=== PATIENT | female | born 1935 | race Caucasian/White ===

== ENCOUNTER 2017-12-28 09:08 | Emergency (ER) | payer MEDICARE, OTHER ==
[~2017-12-28] VITALS: Ht 167.6 cm; Wt 79.4 kg
[~2017-12-28 09:08] MED LIST: AMLO5 PO; ANAS1; BUDESONIDE PO; Bactrim Ds Tab1 EACH PO; CALCAVITD PO; CALGLU500; CELE100 PO; CELE200 PO; CETI10 PO; CHOL10002 PO; CIPR500 PO; CLIN300 PO; CONJUGATED ESTROGENS 0.45 MG; CYCL10; Colace100 MG PO; ENOX40I SC; ERGO400 PO; ESOM20; ESOM20 PO; ESTRTP; FOLI400 PO; GLUCHON; HYDACE5325; HYDACE5325 PO; LACTASE; LEVFLO500 PO; LEVOTHYROXINE 112 MCG PO; LEVSOD100; LEVSOD100 PO; LEVSOD112 PO; LISI20 PO; LISI5; MAGGLU250; MESA400ER; MESA400ER PO; METO5A; MINERALS; NITR100 PO; OMEG1CAP30 PO; ONDA4 PO; OXECTA5 MG PO; OXYACE5T PO; PANT20; PHENA200 PO; POLY500; POLY500 PO; POTASSIUM; POTCHL10ER PO; PRED5 PO; QUIN10; RXHYD5325 PO; RXOXYACE PO; RXPHEN200 PO; SULTRISS; THIA100 PO; VITAMENS; [UNRECOGNIZED DRUG - OTHER] PO
== END 2017-12-28 11:02 | disposition home or self-care (01) ==
LOC: ER 09:08
DX: R51 Headache (principal); Z88.1 Allergy status to other antibiotic agents; Z88.0 Allergy status to penicillin; Z79.899 Other long term (current) drug therapy
CPT/HCPCS: 70450; 99284

== ENCOUNTER → 2018-02-07 | Outpatient (CLI) | payer MEDICARE, OTHER | END | disposition home or self-care (01) | LOC: LAB 11:05 → LAB SHORT 11:05 | DX: L03.116 Cellulitis of left lower limb (principal) | CPT/HCPCS: 87070; 87205 ==

== ENCOUNTER 2018-06-14 18:27 | Emergency (ER) | payer MEDICARE, OTHER ==
[~2018-06-14] VITALS: Ht 167.6 cm; Wt 82.1 kg
== END 2018-06-14 19:57 | disposition home or self-care (01) ==
LOC: ER 18:27
DX: S01.01XA Laceration without foreign body of scalp, initial encounter (principal); Z88.1 Allergy status to other antibiotic agents; Z88.0 Allergy status to penicillin; Z79.899 Other long term (current) drug therapy; Z87.891 Personal history of nicotine dependence; W18.30XA Fall on same level, unspecified, initial encounter
CPT/HCPCS: 12001; 70450; 99283-25

== ENCOUNTER 2018-11-08 11:15 | Day surgery (SDC) | payer MEDICARE, OTHER ==
[~2018-11-08] VITALS: Ht 167.6 cm; Wt 86.7 kg
[~2018-11-08 11:15] MED LIST changes: +BUDESONIDE EC3 MG PO; +CALCIUM 500 +1 EAC2 PO; +FISH OIL 1,0001 EAC1 PO; +MAGNESIUM250 MG PO; +Synthroid112 MCG PO
[2018-11-08] MEDS ORDERED: FURO20 (12:22)
--- NOTE | 2018-11-08 12:28 | NUR ---
11/08/18 1228 MichelleMyranda burroughs ATTEMPTED IN LT AC AND LT WRIST, WOULD NOT THREAD.
--- NOTE | 2018-11-08 15:19 | NUR ---
11/08/18 1519 Rosalie Carranza LATE ENTRY--UPON ENTERING STEPDOWN, PATIENT C/O ABD CRAMPING THAT SHE RATED 4/10. SHE WAS ABLE TO TURN OVER IN BED, SIT UP AND CONVERSE WITHOUT ANY APPEARANCE OF BEING IN PAIN. I ASKED 2-3 DIFFERENT TIMES TO SEE IF PAIN WAS IMPROVING AND SHE ANSWERED NO EACH TIME BUT SAID IT WASN'T GETTING WORSE EITHER. PATIENT WAS VERY ANIMATED AND CONVERSING AND NEVER APPEARED TO BE IN ANY PAIN, WALKED PATIENT TO THE CAR AND SHE HAD NO PROBLEMS AND WAS DISCHARGED IN STABLE CONDITION
== END 2018-11-08 14:35 | disposition home or self-care (01) ==
LOC: ORSCSDS 11:15
PROVIDERS: Internal Medicine Gastroenterology
PROC: 0D7B8ZZ Dilation of Ileum, Via Natural or Artificial Opening Endoscopic (ICD-10-PCS; principal; 2018-11-08 13:00)
PROC: 0DBB8ZX Excision of Ileum, Via Natural or Artificial Opening Endoscopic, Diagnostic (ICD-10-PCS; principal; 2018-11-08 13:00)
DX: K50.90 Crohn's disease, unspecified, without complications (principal); R19.4 Change in bowel habit; D12.0 Benign neoplasm of cecum; K57.30 Diverticulosis of large intestine without perforation or abscess without bleeding; K64.8 Other hemorrhoids; I10 Essential (primary) hypertension; E03.9 Hypothyroidism, unspecified; Z87.891 Personal history of nicotine dependence
CPT/HCPCS: 88305; C1726; J2405; J7120

== ENCOUNTER 2019-01-12 07:56 | Day surgery (SDC) | payer MEDICARE, OTHER ==
[~2019-01-12] VITALS: Ht 167.6 cm; Wt 86.4 kg
[~2019-01-12 07:56] MED LIST changes: +FURO20
== END 2019-01-12 10:00 | disposition home or self-care (01) ==
LOC: ORSCSDS 07:56
PROVIDERS: Internal Medicine Gastroenterology
PROC: 0D758ZZ Dilation of Esophagus, Via Natural or Artificial Opening Endoscopic (ICD-10-PCS; principal; 2019-01-12 09:15)
DX: R13.10 Dysphagia, unspecified (principal); K22.2 Esophageal obstruction; K44.9 Diaphragmatic hernia without obstruction or gangrene; E03.9 Hypothyroidism, unspecified; I10 Essential (primary) hypertension; Z87.891 Personal history of nicotine dependence; E66.9 Obesity, unspecified; Z68.31 Body mass index [BMI] 31.0-31.9, adult; K50.90 Crohn's disease, unspecified, without complications; Z79.899 Other long term (current) drug therapy
CPT/HCPCS: J2704; J7120

== ENCOUNTER → 2019-01-15 | Outpatient (CLI) | payer MEDICARE, OTHER | END | disposition home or self-care (01) | LOC: LAB 16:41 → LAB SHORT 16:41 → LAB FUT 01-10 15:10 | DX: K50.112 Crohn's disease of large intestine with intestinal obstruction (principal) | CPT/HCPCS: 83993 ==

== ENCOUNTER 2019-03-09 14:19 | Emergency (ER) | payer OTHER, MEDICARE ==
[~2019-03-09] VITALS: Ht 165.1 cm; Wt 83.5 kg
[2019-03-09 14:51] LABS: BASOPHILS ABSOLUTE AUTO 0.06 K/mm3 (0.00-0.23); BASOPHILS PERCENT AUTO 1 % (0-2); EOSINOPHILS ABSOLUTE AUTO 0.07 K/mm3 (0.00-0.68); EOSINOPHILS PERCENT AUTO 1 % (0-6); Hematocrit 43.5 % (33.0-51.0); Hemoglobin 13.4 g/dL (11.5-16.0); IMMATURE GRAN ABSOLUTE AUTO 0.31 K/mm3 (0.00-0.10); IMMATURE GRAN PERCENT AUTO 3 % (0-1); LYMPHOCYTES ABSOLUTE AUTO 2.01 K/mm3 (0.84-5.20); LYMPHOCYTES PERCENT AUTO 17 % (21-46); MONOCYTES ABSOLUTE AUTO 0.77 K/mm3 (0.16-1.47); MONOCYTES PERCENT AUTO 6 % (4-13); Mean Corpuscular HGB 28.6 pg (26.0-34.0); Mean Corpuscular HGB Conc 30.8 g/dL (31.5-36.5); Mean Corpuscular Volume 93 fL (80-100); Mean Platelet Volume 10.5 fL (9.1-12.4); NEUTROPHILS ABSOLUTE AUTO 8.94 K/mm3 (1.96-9.15); NEUTROPHILS PERCENT AUTO 74 % (41-73); Platelet Count 242 K/mm3 (150-400); RDW Coefficient Variation 14.2 % (11.7-14.2); RDW Standard Deviation 47.8 fL (35.1-46.3); Red Blood Cell Count 4.68 M/mm3 (3.80-5.20); White Blood Cell Count 12.16 K/mm3 (4.00-11.30)
[2019-03-09 15:12] LABS: Alanine Aminotransfer (ALT/SGP 50 U/L (12-78); Albumin, Blood 3.4 g/dL (3.4-5.0); Alk Phos 84 U/L (50-136); Anion Gap 8 mmol/L (6-16); Aspartate Aminotrans (AST/SGOT 44 U/L (12-37); Bilirubin, Total 0.3 mg/dL (0.1-1.0); Blood Urea Nitrogen 15 mg/dL (8-24); Bun/Creatinine Ratio 13.6 (12.0-20.0); CO2, Blood 25 mmol/L (21-32); Calcium, Blood 9.5 mg/dL (8.5-10.1); Chloride, Blood 107 mmol/L (98-108); Ethanol (Alcohol), Blood, Med <3 mg/dL; Globulin, Blood 3.5 g/dL (2.2-4.0); Glomerular Filtration Rate 50 (60-); Glucose, Blood 172 mg/dL (70-99); Potassium, Blood 3.9 mmol/L (3.5-5.5); Sodium, Blood 140 mmol/L (136-145); Total Protein, Blood 6.9 g/dL (6.4-8.2)
[2019-03-09] MEDS ORDERED: EUTHYROX112 MCG PO (17:19)
[2019-03-09] MEDS ORDERED: POTCHL10ER PO (17:20)
[2019-07-14] MEDS ORDERED: ESOM20 (13:02)
== END 2019-03-09 18:48 | disposition short-term general hospital (02) ==
LOC: ER 14:19
PROVIDERS: Emergency Medicine
DX: S22.31XA Fracture of one rib, right side, initial encounter for closed fracture (principal); S22.20XA Unspecified fracture of sternum, initial encounter for closed fracture; M48.54XA Collapsed vertebra, not elsewhere classified, thoracic region, initial encounter for fracture; S61.501A Unspecified open wound of right wrist, initial encounter; S51.811A Laceration without foreign body of right forearm, initial encounter; K50.90 Crohn's disease, unspecified, without complications; V49.9XXA Car occupant (driver) (passenger) injured in unspecified traffic accident, initial encounter; Z88.1 Allergy status to other antibiotic agents; Z88.0 Allergy status to penicillin; Z88.8 Allergy status to other drugs, medicaments and biological substances; Z79.899 Other long term (current) drug therapy
CPT/HCPCS: 12002; 51702; 71260; 72125; 73090; 74177; 80053; 85025; 86850; 86900; 86901; 93005; 93010; 96374-59; 96375-59; 96376-59; 99285-25; G0480; J2405; J3010; J7030; Q9967

== ENCOUNTER 2019-04-02 18:32 | Emergency (ER) | payer OTHER, MEDICARE ==
[~2019-04-02] VITALS: Ht 165.1 cm; Wt 77.6 kg
[~2019-04-02 18:32] MED LIST changes: +EUTHYROX112 MCG PO
[2019-07-14] MEDS ORDERED: ESOM20 (13:02)
== END 2019-04-02 21:21 | disposition home or self-care (01) ==
LOC: ER 18:32
DX: J06.9 Acute upper respiratory infection, unspecified (principal); Z88.1 Allergy status to other antibiotic agents; Z88.0 Allergy status to penicillin; Z79.899 Other long term (current) drug therapy
CPT/HCPCS: 99283

== ENCOUNTER 2019-04-06 03:28 | Emergency (ER) | payer MEDICARE, OTHER ==
[~2019-04-06] VITALS: Ht 165.1 cm; Wt 77.1 kg
[2019-04-06 04:27] LABS: BASOPHILS ABSOLUTE AUTO 0.03 K/mm3 (0.00-0.23); BASOPHILS PERCENT AUTO 1 % (0-2); EOSINOPHILS PERCENT AUTO 2 % (0-6); Hematocrit 44.5 % (33.0-51.0); Hemoglobin 13.6 g/dL (11.5-16.0); IMMATURE GRAN ABSOLUTE AUTO 0.04 K/mm3 (0.00-0.10); IMMATURE GRAN PERCENT AUTO 1 % (0-1); LYMPHOCYTES ABSOLUTE AUTO 1.77 K/mm3 (0.84-5.20); LYMPHOCYTES PERCENT AUTO 32 % (21-46); MONOCYTES ABSOLUTE AUTO 0.53 K/mm3 (0.16-1.47); MONOCYTES PERCENT AUTO 10 % (4-13); Mean Corpuscular HGB 28.9 pg (26.0-34.0); Mean Corpuscular HGB Conc 30.6 g/dL (31.5-36.5); Mean Corpuscular Volume 95 fL (80-100); NEUTROPHILS ABSOLUTE AUTO 3.01 K/mm3 (1.96-9.15); NEUTROPHILS PERCENT AUTO 55 % (41-73); Platelet Count 246 K/mm3 (150-400); RDW Coefficient Variation 14.4 % (11.7-14.2); RDW Standard Deviation 50.4 fL (35.1-46.3); White Blood Cell Count 5.48 K/mm3 (4.00-11.30)
[2019-04-06 04:47] LABS: Alanine Aminotransfer (ALT/SGP 19 U/L (12-78); Albumin, Blood 3.2 g/dL (3.4-5.0); Albumin/Globulin Ratio 0.9 (0.8-1.8); Alk Phos 234 U/L (50-136); Anion Gap 8 mmol/L (6-16); Aspartate Aminotrans (AST/SGOT 9 U/L (12-37); Bilirubin, Total 0.3 mg/dL (0.1-1.0); Blood Urea Nitrogen 12 mg/dL (8-24); Bun/Creatinine Ratio 18.3 (12.0-20.0); CO2, Blood 29 mmol/L (21-32); Calcium, Blood 8.8 mg/dL (8.5-10.1); Chloride, Blood 104 mmol/L (98-108); Creatinine, Blood 0.65 mg/dL (0.40-1.00); Globulin, Blood 3.6 g/dL (2.2-4.0); Glomerular Filtration Rate >60 (60-); Glucose, Blood 100 mg/dL (70-99); Potassium, Blood 3.1 mmol/L (3.5-5.5); Sodium, Blood 141 mmol/L (136-145); Total Protein, Blood 6.8 g/dL (6.4-8.2); Troponin I <0.015 ng/mL (0.000-0.040)
[2019-07-14] MEDS ORDERED: ESOM20 (13:02)
== END 2019-04-06 17:18 | disposition home or self-care (01) ==
LOC: ER 03:28
PROVIDERS: Emergency Medicine
DX: J96.90 Respiratory failure, unspecified, unspecified whether with hypoxia or hypercapnia (principal); S22.42XD Multiple fractures of ribs, left side, subsequent encounter for fracture with routine healing; E03.9 Hypothyroidism, unspecified; Z88.1 Allergy status to other antibiotic agents; Z88.0 Allergy status to penicillin; Z79.899 Other long term (current) drug therapy; Z87.891 Personal history of nicotine dependence
CPT/HCPCS: 36415; 71046; 71260; 78582; 80053; 84484; 85025; 85379; 93005; 93010; 94640; 96374-59; 96375-59; 99285-25; A9270; A9540; A9558; J2405; J2930; Q9967

== ENCOUNTER → 2019-04-12 | Outpatient (CLI) | payer MEDICARE, OTHER ==
[2019-04-13 13:12] LABS: Adenovirus F 40/41 Not Detected (NOT DETECT); Astrovirus Not Detected (NOT DETECT); Campylobacter Sp Not Detected (NOT DETECT); Cryptosporidium Not Detected (NOT DETECT); Cyclospora Cayetanensis Not Detected (NOT DETECT); E. Coli O157 Not Detected (NOT DETECT); Entamoeba Histolytica Not Detected (NOT DETECT); Enteroaggregative E. coli-EAEC Not Detected (NOT DETECT); Enteropathogenic E. coli-EPEC Not Detected (NOT DETECT); Enterotoxigenic E. coli-ETEC Not Detected (NOT DETECT); Giardia Lamblia Not Detected (NOT DETECT); Norovirus GI/GII Not Detected (NOT DETECT); Plesiomonas Shigelloides Not Detected (NOT DETECT); Rotavirus A Not Detected (NOT DETECT); Salmonella Sp Not Detected (NOT DETECT); Sapovirus Not Detected (NOT DETECT); Shiga Toxin-prod E. coli-STEC Not Detected (NOT DETECT); Shigella/Enteroin E. coli-EIEC Not Detected (NOT DETECT); Vibrio Cholerae Not Detected (NOT DETECT); Vibrio Sp Not Detected (NOT DETECT); Yersinia Enterocolitica Not Detected (NOT DETECT)
== END | disposition home or self-care (01) ==
LOC: LAB 14:30 → LAB SHORT 14:30 → LAB FUT 04-11 13:30
PROVIDERS: Internal Medicine Hematology & Oncology
DX: R19.7 Diarrhea, unspecified (principal)
CPT/HCPCS: 0097U

== ENCOUNTER 2019-07-27 10:24 | Day surgery (SDC) | payer MEDICARE, OTHER | END 2019-07-27 23:17 | disposition home or self-care (01) | LOC: MIR 10:24 → RAD 10:24 → MIR 11:00 → RAD 23:17 | DX: R05 Cough (principal); R09.89 Other specified symptoms and signs involving the circulatory and respiratory systems; R13.10 Dysphagia, unspecified; K21.9 Gastro-esophageal reflux disease without esophagitis; G62.9 Polyneuropathy, unspecified; I10 Essential (primary) hypertension; E03.9 Hypothyroidism, unspecified; M19.90 Unspecified osteoarthritis, unspecified site; Z79.899 Other long term (current) drug therapy; Z88.0 Allergy status to penicillin; Z88.1 Allergy status to other antibiotic agents | CPT/HCPCS: 74230; 92611 ==

== ENCOUNTER 2019-09-25 10:38 | Emergency (ER) | payer MEDICARE, OTHER ==
[~2019-09-25] VITALS: Ht 167.6 cm; Wt 73.9 kg
[2019-09-25 11:34] LABS: BASOPHILS ABSOLUTE AUTO 0.06 K/mm3 (0.00-0.23); BASOPHILS PERCENT AUTO 0 % (0-2); EOSINOPHILS ABSOLUTE AUTO 0.05 K/mm3 (0.00-0.68); EOSINOPHILS PERCENT AUTO 0 % (0-6); Hematocrit 47.6 % (33.0-51.0); Hemoglobin 15.1 g/dL (11.5-16.0); IMMATURE GRAN ABSOLUTE AUTO 0.08 K/mm3 (0.00-0.10); IMMATURE GRAN PERCENT AUTO 1 % (0-1); LYMPHOCYTES ABSOLUTE AUTO 1.56 K/mm3 (0.84-5.20); LYMPHOCYTES PERCENT AUTO 10 % (21-46); MONOCYTES ABSOLUTE AUTO 1.44 K/mm3 (0.16-1.47); MONOCYTES PERCENT AUTO 9 % (4-13); Mean Corpuscular HGB Conc 31.7 g/dL (31.5-36.5); Mean Corpuscular Volume 92 fL (80-100); Mean Platelet Volume 11.3 fL (9.1-12.4); NEUTROPHILS ABSOLUTE AUTO 12.24 K/mm3 (1.96-9.15); NEUTROPHILS PERCENT AUTO 79 % (41-73); Platelet Count 238 K/mm3 (150-400); RDW Standard Deviation 43.7 fL (35.1-46.3); White Blood Cell Count 15.43 K/mm3 (4.00-11.30)
[2019-09-25] MEDS ORDERED: LOSARTAN POTASS50 MG PO (11:34)
[2019-09-25] MEDS ORDERED: [UNRECOGNIZED DRUG - OTHER] (11:35)
[2019-09-25 11:53] LABS: Albumin, Blood 3.4 g/dL (3.4-5.0); Albumin/Globulin Ratio 0.8 (0.8-1.8); Bilirubin, Total 1.3 mg/dL (0.1-1.0); Bun/Creatinine Ratio 16.4 (12.0-20.0); Calcium, Blood 9.7 mg/dL (8.5-10.1); Creatinine, Blood 0.98 mg/dL (0.40-1.00); Globulin, Blood 4.3 g/dL (2.2-4.0); Potassium, Blood 3.1 mmol/L (3.5-5.5); Total Protein, Blood 7.7 g/dL (6.4-8.2)
[2019-09-25 15:16] LABS: Source, Urine Clean Catch
[2019-09-25 15:24] LABS: Bilirubin, Urine Neg (Neg); Blood, Urine 1+ (Neg); Glucose Qualitative, Urine Neg (Neg); Ketones, Urine Neg (Neg); Leukocyte Esterase, Urine 3+ (Neg); Nitrite, Urine Pos (Neg); Protein, Urine 2+ (Neg); Urobilinogen, Urine NORM (Normal)
[2019-09-25 15:35] LABS: Appearance, Urine Cloudy (Clear); Color, Urine Yellow (P-Yellow)
[2019-09-25 15:36] LABS: White Blood Cells, Urine 50-100 /hpf (0-5)
[2019-09-25 15:37] LABS: Bacteria Many /hpf; Squamous Epithelial Cells Few /hpf (Few)
[2019-09-25] MEDS ORDERED: Bactrim Ds Tab1 EACH PO (15:59)
[2019-09-25] MEDS ORDERED: Flagyl250 MG PO (15:59)
== END 2019-09-25 17:06 | disposition home or self-care (01) ==
LOC: ER 10:38
PROVIDERS: Emergency Medicine
DX: K57.32 Diverticulitis of large intestine without perforation or abscess without bleeding (principal); Z88.1 Allergy status to other antibiotic agents; Z88.0 Allergy status to penicillin; Z79.899 Other long term (current) drug therapy; E03.9 Hypothyroidism, unspecified; Z87.891 Personal history of nicotine dependence
CPT/HCPCS: 36415; 74018; 74176; 80053; 81001; 83690; 85025; 87077; 87086; 87186; 99284-25; A9270-GY

== ENCOUNTER 2020-06-11 06:10 | Day surgery (SDC) | payer MEDICARE, OTHER ==
[~2020-06-11] VITALS: Ht 157.5 cm; Wt 72.9 kg
[~2020-06-11 06:10] MED LIST changes: +ENTYVIO300 MG; -FURO20; +FURO20 PO; +Flagyl250 MG PO; +HIPREX1 G1 PO; +LOSARTAN POTASS50 MG PO; +Nexium40 MG PO; +POTASSIUM CHLO20 MEQ PO; +[UNRECOGNIZED DRUG - OTHER]
--- NOTE | 2020-06-11 07:37 | NUR ---
06/11/20 0737 Jp Juarez A SMALL SCABBED SCRATCH NOTED ON LEFT UPPER WRIST BEFORE PREP.
--- NOTE | 2020-06-11 08:56 | NUR ---
06/11/20 0856 KHALIDA BATES PATIENT VSS, ASSISTED TO RECLINER. IV DC'D. PATIENT REPORTS HAND/WRIST IS NUMB AT THIS TIME. TOO WRAP C/D/I. PATIENT TOLERATING PO INTAKE WITHOUT NAUSEA. TO BEDSIDE. ENGAGED IN DC TEACHING PATIENT IS EAGER TO DC. ALL QUESTIONS ASKED AND ANSWERED. PT DC VIA WC TO VEHICLE.
== END 2020-06-11 08:20 | disposition home or self-care (01) ==
LOC: ORSCSDS 06:10
PROVIDERS: Orthopaedic Surgery
PROC: 01N50ZZ Release Median Nerve, Open Approach (ICD-10-PCS; principal; 2020-06-11 07:30)
DX: G56.02 Carpal tunnel syndrome, left upper limb (principal); I10 Essential (primary) hypertension; Z79.899 Other long term (current) drug therapy
CPT/HCPCS: J2704; J3010; J7120

== ENCOUNTER 2021-10-23 07:37 | Day surgery (SDC) | payer MEDICARE, OTHER ==
[~2021-10-23] VITALS: Ht 157.5 cm; Wt 77.0 kg
== END 2021-10-23 09:57 | disposition home or self-care (01) ==
LOC: ORSCSDS 07:37
PROVIDERS: Internal Medicine Gastroenterology
PROC: 0D758ZZ Dilation of Esophagus, Via Natural or Artificial Opening Endoscopic (ICD-10-PCS; principal; 2021-10-23 09:00)
DX: R13.10 Dysphagia, unspecified (principal); K22.2 Esophageal obstruction; K21.9 Gastro-esophageal reflux disease without esophagitis; I10 Essential (primary) hypertension; E03.9 Hypothyroidism, unspecified; Z85.3 Personal history of malignant neoplasm of breast; Z79.899 Other long term (current) drug therapy; Z87.891 Personal history of nicotine dependence
CPT/HCPCS: C1726; J2704; J7120

== ENCOUNTER → 2022-02-22 | Outpatient (CLI) | payer MEDICARE, OTHER | END | disposition home or self-care (01) | LOC: LAB SHORT 15:58 → EFM RAD 15:58 | DX: N39.0 Urinary tract infection, site not specified (principal) | CPT/HCPCS: 87077; 87086; 87186 ==

== ENCOUNTER → 2022-03-20 | Outpatient (CLI) | payer MEDICARE, OTHER | END | disposition home or self-care (01) | LOC: LAB SHORT 17:22 → LAB 17:22 | DX: S81.812A Laceration without foreign body, left lower leg, initial encounter (principal) | CPT/HCPCS: 87070; 87075; 87205 ==

== ENCOUNTER → 2022-03-27 | Outpatient (CLI) | payer MEDICARE, OTHER ==
[~2022-03-27] MED LIST changes: +CYCL0.05OP; +FUROSEMIDE20 MG PO; +LEVOTHYROXINE PO; +LOSA25; +PANTOPRAZOLE SO40 M2
== END | disposition home or self-care (01) ==
LOC: LAB SHORT 16:43 → LAB 16:43
DX: S81.812D Laceration without foreign body, left lower leg, subsequent encounter (principal)
CPT/HCPCS: 87070; 87075; 87205

== ENCOUNTER 2022-04-12 20:52 | Emergency (ER) | payer MEDICARE, OTHER ==
[~2022-04-12] VITALS: Ht 157.5 cm; Wt 77.1 kg
[~2022-04-12 20:52] MED LIST changes: -CYCL0.05OP; -FUROSEMIDE20 MG PO; -LEVOTHYROXINE PO; -LOSA25; -PANTOPRAZOLE SO40 M2
[2022-04-12] MEDS ORDERED: FUROSEMIDE20 MG PO (22:04)
[2022-04-12] MEDS ORDERED: PANTOPRAZOLE SO40 M2 (22:06)
[2022-04-12] MEDS ORDERED: CYCL0.05OP (22:06)
[2022-04-12] MEDS ORDERED: LOSA25 (22:07)
[2022-04-12] MEDS ORDERED: LEVOTHYROXINE PO (22:08)
== END 2022-04-12 23:10 | disposition home or self-care (01) ==
LOC: ER 20:52
DX: U07.1 COVID-19 (principal); Z88.0 Allergy status to penicillin; Z88.2 Allergy status to sulfonamides; Z88.1 Allergy status to other antibiotic agents; Z96.652 Presence of left artificial knee joint; Z87.891 Personal history of nicotine dependence
CPT/HCPCS: 99283-25; M0222

== ENCOUNTER 2023-07-07 13:05 | Day surgery (SDC) | payer MEDICARE, OTHER ==
[~2023-07-07] VITALS: Ht 157.5 cm; Wt 79.5 kg
[~2023-07-07 13:05] MED LIST changes: +CYCL0.05OP; +FUROSEMIDE20 MG PO; +LEVOTHYROXINE PO; +LOSA25; +PANTOPRAZOLE SO40 M2
[2023-07-07] MEDS ORDERED: ENTYVIO300 M1 (13:34)
[2023-07-07] MEDS ORDERED: CYCL0.05OP (13:34)
[2023-07-07] MEDS ORDERED: FLUP1 (13:34)
[2023-07-07] MEDS ORDERED: MAGCIT300 (13:35)
[2023-07-07] MEDS ORDERED: BENADRYL25 MG (13:35)
[2023-07-07] MEDS ORDERED: POTA8 (13:35)
[2023-07-07 17:00] VITALS: BP 164/68
--- NOTE | 2023-07-07 17:12 | NUR ---
07/07/23 1712 JUAN MIGUEL STERLING ASSISTANCE IN PT DC.
== END 2023-07-07 17:08 | disposition home or self-care (01) ==
LOC: ORSCSDS 13:05
PROVIDERS: Internal Medicine Gastroenterology
PROC: 0DBE8ZX Excision of Large Intestine, Via Natural or Artificial Opening Endoscopic, Diagnostic (ICD-10-PCS; principal; 2023-07-07 14:30)
PROC: 0DBB8ZX Excision of Ileum, Via Natural or Artificial Opening Endoscopic, Diagnostic (ICD-10-PCS; principal; 2023-07-07 14:30)
DX: K50.90 Crohn's disease, unspecified, without complications (principal); R19.7 Diarrhea, unspecified; Z86.010 Personal history of colon polyps; I10 Essential (primary) hypertension; K21.9 Gastro-esophageal reflux disease without esophagitis; E03.9 Hypothyroidism, unspecified; Z85.3 Personal history of malignant neoplasm of breast; Z87.891 Personal history of nicotine dependence; Z79.899 Other long term (current) drug therapy
CPT/HCPCS: 88305; J0461; J2001; J2405; J2704; J7120; Q9968

== ENCOUNTER 2023-07-15 07:57 | Day surgery (SDC) | payer MEDICARE, OTHER ==
[~2023-07-15] VITALS: Ht 157.5 cm; Wt 80.2 kg
[~2023-07-15 07:57] MED LIST changes: +BENADRYL25 MG; +ENTYVIO300 M1; +FLUP1; +MAGCIT300; +POTA8
[2023-07-15] MEDS ORDERED: ENTYVIO300 M1 (08:27)
[2023-07-15] MEDS ORDERED: PANT40 (08:28)
[2023-07-15] MEDS ORDERED: Restasis1 EACH (08:28)
[2023-07-15] MEDS ORDERED: PROLIA60 MG/1 ML (08:36)
--- NOTE | 2023-07-15 10:10 | NUR ---
07/15/23 1010 JUAN MIGUEL STERLING 16,YENY 18-20 AND ALBIN 54,56
[2023-07-15 10:50] VITALS: BP 126/73
--- NOTE | 2023-07-15 10:52 | NUR ---
07/15/23 1052 Mana Sparrow IV, DC'Michael WNL, CATH INTACT. PT TOLERATED WELL.
== END 2023-07-15 10:43 | disposition home or self-care (01) ==
LOC: ORSCSDS 07:57
PROVIDERS: Internal Medicine Gastroenterology
PROC: 0D757ZZ Dilation of Esophagus, Via Natural or Artificial Opening (ICD-10-PCS; principal; 2023-07-15 09:30)
PROC: 0D758ZZ Dilation of Esophagus, Via Natural or Artificial Opening Endoscopic (ICD-10-PCS; principal; 2023-07-15 09:30)
DX: R13.10 Dysphagia, unspecified (principal); K21.9 Gastro-esophageal reflux disease without esophagitis; K22.2 Esophageal obstruction; K44.9 Diaphragmatic hernia without obstruction or gangrene; Z86.16 Personal history of COVID-19; Z79.899 Other long term (current) drug therapy; K50.90 Crohn's disease, unspecified, without complications; Z85.3 Personal history of malignant neoplasm of breast; F17.210 Nicotine dependence, cigarettes, uncomplicated
CPT/HCPCS: C1726; J2704; J7120

== ENCOUNTER 2023-08-26 00:58 | Day surgery (SDC) | payer MEDICARE, OTHER ==
[~2023-08-26 00:58] MED LIST changes: +ENTYVIO300 M1 IV; -LEVOTHYROXINE PO; -LOSA25; +LOSA50 PO; -MAGCIT300; +MAGNESIUM250 M1 PO; +PANT40 PO; +PROLIA60 MG/1 ML; +Restasis1 EACH BOTHEYES
[2023-08-26 15:01] VITALS: BP 140/69
[2023-08-26] MEDS ORDERED: ARNUITY ELLIPT50 MCG INH (15:01)
[2023-08-26] MEDS ORDERED: Vitamin D1000 UNI1 PO (15:06)
[2023-08-26] MEDS ORDERED: CALCIUM 600 +1 EA11 PO (15:07)
== END 2023-08-26 16:07 | disposition home or self-care (01) ==
LOC: ATC 00:58
DX: K50.012 Crohn's disease of small intestine with intestinal obstruction (principal); K21.9 Gastro-esophageal reflux disease without esophagitis; Z86.16 Personal history of COVID-19; F17.210 Nicotine dependence, cigarettes, uncomplicated; Z79.890 Hormone replacement therapy; Z79.899 Other long term (current) drug therapy
CPT/HCPCS: 96365; J3380; J7050

== ENCOUNTER 2023-10-13 02:45 | Day surgery (SDC) | payer MEDICARE, OTHER ==
[~2023-10-13 02:45] MED LIST changes: +ARNUITY ELLIPT50 MCG INH; +CALCIUM 600 +1 EA11 PO; +Vitamin D1000 UNI1 PO
[2023-10-13 10:00] VITALS: BP 138/90
== END 2023-10-13 11:00 | disposition home or self-care (01) ==
LOC: ATC 02:45
DX: K50.012 Crohn's disease of small intestine with intestinal obstruction (principal); K21.9 Gastro-esophageal reflux disease without esophagitis; K52.9 Noninfective gastroenteritis and colitis, unspecified; F17.210 Nicotine dependence, cigarettes, uncomplicated; Z86.16 Personal history of COVID-19; Z88.0 Allergy status to penicillin; Z88.1 Allergy status to other antibiotic agents; Z79.890 Hormone replacement therapy; Z79.899 Other long term (current) drug therapy
CPT/HCPCS: 96365; J3380; J7050

== ENCOUNTER → 2023-10-21 | Outpatient (CLI) | payer MEDICARE, OTHER ==
[2023-10-21 12:23] LABS: Source, Urine Clean Catch
[2023-10-21 12:28] LABS: Bacteria Not Seen /hpf; Red Blood Cells, Urine 0-2 /hpf (0-2); Squamous Epithelial Cells Few /hpf (Few); White Blood Cells, Urine 0-2 /hpf (0-5)
== END ==
LOC: LAB SHORT 12:18 → LAB 12:18
PROVIDERS: Chiropractor
DX: R30.0 Dysuria (principal)
CPT/HCPCS: 81015

== ENCOUNTER 2024-01-21 10:58 | Day surgery (SDC) | payer MEDICARE, OTHER | END 2024-01-21 23:04 | disposition home or self-care (01) | LOC: ATC 10:58 | DX: K50.012 Crohn's disease of small intestine with intestinal obstruction (principal) ==

== ENCOUNTER → 2024-01-21 | Outpatient (CLI) | payer MEDICARE, OTHER ==
[~2024-01-21] MED LIST changes: +DULO30 PO
[2024-01-21 17:08] LABS: Campylobacter Sp Not Detected (NOT DETECT)
[2024-01-21 17:09] LABS: Adenovirus F 40/41 Not Detected (NOT DETECT); Astrovirus Not Detected (NOT DETECT); Cryptosporidium Not Detected (NOT DETECT); Cyclospora Cayetanensis Not Detected (NOT DETECT); E. Coli O157 Not Detected (NOT DETECT); Entamoeba Histolytica Not Detected (NOT DETECT); Enteroaggregative E. coli-EAEC Not Detected (NOT DETECT); Enteropathogenic E. coli-EPEC Not Detected (NOT DETECT); Enterotoxigenic E. coli-ETEC Not Detected (NOT DETECT); Giardia Lamblia Not Detected (NOT DETECT); Norovirus GI/GII Not Detected (NOT DETECT); Plesiomonas Shigelloides Not Detected (NOT DETECT); Rotavirus A Not Detected (NOT DETECT); Salmonella Sp Not Detected (NOT DETECT); Sapovirus Not Detected (NOT DETECT); Shiga Toxin-prod E. coli-STEC Not Detected (NOT DETECT); Shigella/Enteroin E. coli-EIEC Not Detected (NOT DETECT); Vibrio Cholerae Not Detected (NOT DETECT); Vibrio Sp Not Detected (NOT DETECT); Yersinia Enterocolitica Not Detected (NOT DETECT)
[2024-01-24 15:42] LABS: CALPROTECTIN,FECAL 9 ug/g (<=49)
== END | disposition home or self-care (01) ==
LOC: LAB 09:35 → LAB SHORT 09:35
PROVIDERS: Physician Assistant Medical
DX: K50.012 Crohn's disease of small intestine with intestinal obstruction (principal); R19.7 Diarrhea, unspecified
CPT/HCPCS: 83993; 87507

== ENCOUNTER 2024-01-24 09:50 | Day surgery (SDC) | payer MEDICARE, OTHER ==
[2024-01-24 13:28] VITALS: BP 161/70
== END 2024-01-24 15:02 | disposition home or self-care (01) ==
LOC: ATC 09:50
DX: K50.012 Crohn's disease of small intestine with intestinal obstruction (principal); F17.210 Nicotine dependence, cigarettes, uncomplicated; E03.9 Hypothyroidism, unspecified; Z88.1 Allergy status to other antibiotic agents; Z88.0 Allergy status to penicillin; Z88.2 Allergy status to sulfonamides; Z88.8 Allergy status to other drugs, medicaments and biological substances; Z79.890 Hormone replacement therapy; Z79.899 Other long term (current) drug therapy

== ENCOUNTER 2024-06-15 11:33 | Emergency (ER) | payer OTHER, MEDICARE ==
[~2024-06-15] VITALS: Ht 157.5 cm; Wt 80.3 kg
[2024-06-15 11:40] VITALS: BP 178/86
[2024-06-15] MEDS ORDERED: Morphine Sulfate 4 MG/1 ML Injection IV ONE (11:45)
[2024-06-15 12:03] LABS: BASOPHILS ABSOLUTE AUTO 0.03 K/mm3 (0.00-0.23); BASOPHILS PERCENT AUTO 1 % (0-2); EOSINOPHILS ABSOLUTE AUTO 0.06 K/mm3 (0.00-0.68); EOSINOPHILS PERCENT AUTO 1 % (0-6); Hematocrit 45.4 % (33.0-51.0); Hemoglobin 14.5 g/dL (11.5-16.0); IMMATURE GRAN ABSOLUTE AUTO 0.05 K/mm3 (0.00-0.10); IMMATURE GRAN PERCENT AUTO 1 % (0-1); LYMPHOCYTES ABSOLUTE AUTO 0.97 K/mm3 (0.84-5.20); LYMPHOCYTES PERCENT AUTO 15 % (21-46); MONOCYTES ABSOLUTE AUTO 0.63 K/mm3 (0.16-1.47); MONOCYTES PERCENT AUTO 10 % (4-13); Mean Corpuscular HGB 29.5 pg (26.0-34.0); Mean Corpuscular HGB Conc 31.9 g/dL (31.5-36.5); Mean Corpuscular Volume 92 fL (80-100); Mean Platelet Volume 10.8 fL (9.1-12.4); NEUTROPHILS ABSOLUTE AUTO 4.67 K/mm3 (1.96-9.15); NEUTROPHILS PERCENT AUTO 73 % (41-73); Platelet Count 170 K/mm3 (150-400); RDW Coefficient Variation 13.5 % (11.7-14.2); RDW Standard Deviation 45.4 fL (35.1-46.3); Red Blood Cell Count 4.92 M/mm3 (3.80-5.20); White Blood Cell Count 6.41 K/mm3 (4.00-11.30)
[2024-06-15 12:53] LABS: Albumin, Blood 3.3 g/dL (3.4-5.0); Albumin/Globulin Ratio 0.9 (0.8-1.8); Bilirubin, Total 0.5 mg/dL (0.1-1.0); Calcium, Blood 8.6 mg/dL (8.5-10.1); Creatinine, Blood 0.79 mg/dL (0.40-1.00); Globulin, Blood 3.8 g/dL (2.2-4.0); Potassium, Blood 3.8 mmol/L (3.5-5.5); Total Protein, Blood 7.1 g/dL (6.4-8.2)
[2024-06-15] MEDS ORDERED: ACET500 PO (13:04)
[2024-06-15] MEDS ORDERED: LIDO700A20 TOP (13:04)
== END 2024-06-15 13:15 | disposition home or self-care (01) ==
LOC: ER 11:33
PROVIDERS: Emergency Medicine
DX: M54.50 Low back pain, unspecified (principal); M54.6 Pain in thoracic spine; R07.2 Precordial pain; V43.62XA Car passenger injured in collision with other type car in traffic accident, initial encounter; Z88.1 Allergy status to other antibiotic agents; Z88.0 Allergy status to penicillin; Z79.899 Other long term (current) drug therapy; E03.9 Hypothyroidism, unspecified; Z87.891 Personal history of nicotine dependence
CPT/HCPCS: 70450; 71260; 72125; 72131; 80053; 83690; 84484; 85025; 93005; 93010; 99285-25; Q9967

== ENCOUNTER 2025-01-12 15:48 | Observation (INO) | payer MEDICARE, OTHER ==
[~2025-01-12] VITALS: Ht 167.6 cm; Wt 64.3 kg
[~2025-01-12 15:48] MED LIST changes: +ACET500 PO; +LIDO700A20 TOP
[2025-01-12 16:32] LABS: BASOPHILS ABSOLUTE AUTO 0.03 K/mm3 (0.00-0.23); BASOPHILS PERCENT AUTO 0 % (0-2); EOSINOPHILS ABSOLUTE AUTO 0.14 K/mm3 (0.00-0.68); EOSINOPHILS PERCENT AUTO 2 % (0-6); Hemoglobin 13.6 g/dL (11.5-16.0); IMMATURE GRAN ABSOLUTE AUTO 0.02 K/mm3 (0.00-0.10); IMMATURE GRAN PERCENT AUTO 0 % (0-1); LYMPHOCYTES ABSOLUTE AUTO 1.76 K/mm3 (0.84-5.20); LYMPHOCYTES PERCENT AUTO 26 % (21-46); MONOCYTES ABSOLUTE AUTO 0.71 K/mm3 (0.16-1.47); MONOCYTES PERCENT AUTO 11 % (4-13); Mean Corpuscular HGB Conc 31.6 g/dL (31.5-36.5); Mean Corpuscular Volume 92 fL (80-100); Mean Platelet Volume 10.5 fL (9.1-12.4); NEUTROPHILS ABSOLUTE AUTO 4.04 K/mm3 (1.96-9.15); NEUTROPHILS PERCENT AUTO 60 % (41-73); Platelet Count 177 K/mm3 (150-400); RDW Coefficient Variation 13.7 % (11.7-14.2); RDW Standard Deviation 46.2 fL (35.1-46.3); Red Blood Cell Count 4.69 M/mm3 (3.80-5.20)
[2025-01-12 16:55] LABS: Albumin, Blood 3.5 g/dL (3.4-5.0); Albumin/Globulin Ratio 1.1 (0.8-1.8); Bilirubin, Total 0.3 mg/dL (0.1-1.0); Bun/Creatinine Ratio 23.2 (12.0-20.0); Calcium, Blood 8.6 mg/dL (8.5-10.1); Creatinine, Blood 0.82 mg/dL (0.40-1.00); Globulin, Blood 3.1 g/dL (2.2-4.0); Potassium, Blood 3.7 mmol/L (3.5-5.5); Total Protein, Blood 6.6 g/dL (6.4-8.2)
[2025-01-12 20:06] LABS: Source, Urine Clean Catch
[2025-01-12 20:09] LABS: Bilirubin, Urine Neg (Neg); Blood, Urine 1+ (Neg); Glucose Qualitative, Urine Neg (Neg); Ketones, Urine Neg (Neg); Leukocyte Esterase, Urine Neg (Neg); Nitrite, Urine Neg (Neg); Protein, Urine Neg (Neg); Urobilinogen, Urine NORM (Normal)
[2025-01-12 20:15] LABS: Appearance, Urine Clear (Clear); Color, Urine Pale Yellow (P-Yellow); White Blood Cells, Urine 0-2 /hpf (0-5)
[2025-01-12 20:17] LABS: Bacteria Rare /hpf; Squamous Epithelial Cells Few /hpf (Few)
[2025-01-12] MEDS ORDERED: Acetaminophen 325 MG TABLET PO PRN (21:55)
[2025-01-12 23:08] VITALS: BP 165/75
[2025-01-13 04:41] VITALS: BP 125/64
[2025-01-13] MEDS ORDERED: Levothyroxine Sodium 0.112 MG Tab PO SCH (06:00)
[2025-01-13] MEDS ORDERED: Pantoprazole Sodium 40 MG Tab PO SCH (06:00)
[2025-01-13 07:08] LABS: BASOPHILS ABSOLUTE AUTO 0.02 K/mm3 (0.00-0.23); BASOPHILS PERCENT AUTO 0 % (0-2); EOSINOPHILS ABSOLUTE AUTO 0.15 K/mm3 (0.00-0.68); EOSINOPHILS PERCENT AUTO 3 % (0-6); Hematocrit 41.9 % (33.0-51.0); Hemoglobin 13.3 g/dL (11.5-16.0); IMMATURE GRAN ABSOLUTE AUTO 0.02 K/mm3 (0.00-0.10); IMMATURE GRAN PERCENT AUTO 0 % (0-1); LYMPHOCYTES ABSOLUTE AUTO 1.26 K/mm3 (0.84-5.20); LYMPHOCYTES PERCENT AUTO 23 % (21-46); MONOCYTES ABSOLUTE AUTO 0.69 K/mm3 (0.16-1.47); MONOCYTES PERCENT AUTO 13 % (4-13); Mean Corpuscular HGB Conc 31.7 g/dL (31.5-36.5); Mean Corpuscular Volume 91 fL (80-100); Mean Platelet Volume 10.6 fL (9.1-12.4); NEUTROPHILS PERCENT AUTO 61 % (41-73); Platelet Count 177 K/mm3 (150-400); RDW Coefficient Variation 13.6 % (11.7-14.2); RDW Standard Deviation 45.9 fL (35.1-46.3); Red Blood Cell Count 4.59 M/mm3 (3.80-5.20); White Blood Cell Count 5.54 K/mm3 (4.00-11.30)
[2025-01-13 07:31] VITALS: BP 135/66
--- NOTE | 2025-01-13 07:33 | NUR ---
Shift Summary Pt admitted from ED for symptoms of CVA. This shift pt had no obvious signs of CVA. Her R side may be very slightly weaker than L side, and her R eye may be reacting to light slightly slow. She is AOx4, not slurring words. Incontinent voids which is her BL, attends changed PRN. spent the night in the room.
[2025-01-13 07:52] LABS: Alanine Aminotransfer (ALT/SGP 17 U/L (12-78); Albumin, Blood 3.2 g/dL (3.4-5.0); Albumin/Globulin Ratio 1.1 (0.8-1.8); Alk Phos 58 U/L (50-136); Anion Gap 8 mmol/L (3-11); Aspartate Aminotrans (AST/SGOT 14 U/L (12-37); Bilirubin, Total 0.6 mg/dL (0.1-1.0); Blood Urea Nitrogen 11 mg/dL (8-24); Bun/Creatinine Ratio 13.6 (12.0-20.0); CO2, Blood 29 mmol/L (21-32); Calcium, Blood 8.4 mg/dL (8.5-10.1); Chloride, Blood 104 mmol/L (98-108); Cholesterol 193 mg/dL (50-200); Creatinine, Blood 0.81 mg/dL (0.40-1.00); Glomerular Filtration Rate 70 (60-); Glucose, Blood 95 mg/dL (70-99); HDL Cholesterol 48 mg/dL (>39); LDL/HDL RATIO 2.1; Low Density Lipoprotein Chol 100 mg/dL (0-110); Magnesium, Blood 1.6 mg/dL (1.6-2.4); Potassium, Blood 3.2 mmol/L (3.5-5.5); Sodium, Blood 138 mmol/L (136-145); Total Protein, Blood 6.2 g/dL (6.4-8.2); Triglycerides 227 mg/dL (30-160); Very Low Density Lipoprot Chol 45 mg/dL (6-32)
[2025-01-13] MEDS ORDERED: Enoxaparin 40 MG/0.4 ML SYR SC SCH (09:00)
[2025-01-13] MEDS ORDERED: Atorvastatin 40 MG Tab PO SCH (09:00)
[2025-01-13] MEDS ORDERED: Clopidogrel Bisulfate 75 MG Tab PO SCH (09:00)
[2025-01-13] MEDS ORDERED: DULoxetine HCL 30 MG Cap DR PO SCH (09:00)
[2025-01-13] MEDS ORDERED: Aspirin 81 MG Chew PO SCH (09:00)
[2025-01-13] MEDS ORDERED: Lidocaine 4% 1 Patch TOP ONE (10:05)
[2025-01-13 11:25] VITALS: BP 144/72
[2025-01-13] MEDS ORDERED: ASPI81CH PO (13:31)
--- NOTE | 2025-01-13 13:49 | NUR ---
DISCHARGE PT AOX4, COOPERATIVE, ABLE TO MAKE NEEDS KNOWN. PT HAS BEEN PERSISTANT ON GOING HOME TODAY DUE TO A "ADVENT EVENT" SHE NEEDS TO MAKE 25 TACO BOWLS FOR. INFORMED PT MRI PROBABLY WOULD NOT HAPPEN TODAY. AMADO INFORMED THIS RN PT IS LEAVING AMA. THIS RN INFORMED MD KIMBERLEE PLACED DISCHARGE ORDERS, THIS RN WENT OVER DC PAPERWORK, BABY ASPIRIN PRESCRIBED. ABDIFATAH POWERGLIDE DC'D BY THIS RN WITHOUT EVENT. PT WAS WHEELED DOWN TO ENTRANCE BY AMADO.
== END 2025-01-13 13:48 | disposition home or self-care (01) ==
LOC: ER 15:48 → MEDS 23:07
PROVIDERS: Emergency Medicine; ADMIT Student in an Organized Health Care Education/Training Program
DX: R47.1 Dysarthria and anarthria (principal); R51.9 Headache, unspecified; E03.9 Hypothyroidism, unspecified; G60.9 Hereditary and idiopathic neuropathy, unspecified; K50.00 Crohn's disease of small intestine without complications; E06.3 Autoimmune thyroiditis; Z87.891 Personal history of nicotine dependence; Z88.0 Allergy status to penicillin; Z88.1 Allergy status to other antibiotic agents; Z88.2 Allergy status to sulfonamides; Z79.890 Hormone replacement therapy; Z79.899 Other long term (current) drug therapy
CPT/HCPCS: 70450; 70496; 70498; 71045; 80053; 80061; 81001; 83036; 83735; 84443; 85025; 93005; 93010; 99285-25; A9270; C1751; G0378; Q9967

== ENCOUNTER → 2025-01-16 | Outpatient (CLI) | payer MEDICARE, OTHER ==
[~2025-01-16] MED LIST changes: +ASPI81CH PO
== END | disposition home or self-care (01) ==
LOC: LAB 12:11 → LAB SHORT 12:11
DX: R31.29 Other microscopic hematuria (principal)
CPT/HCPCS: 87077; 87086; 87186

== ENCOUNTER → 2025-05-15 | Outpatient (CLI) | payer MEDICARE, OTHER | LOC: LAB 18:08 → LAB SHORT 18:08 | DX: R30.0 Dysuria (principal) | CPT/HCPCS: 87086 ==

== ENCOUNTER → 2025-06-01 | Outpatient (CLI) | payer MEDICARE, OTHER | LOC: LAB SHORT 12:32 → LAB 12:32 | DX: R30.0 Dysuria (principal) | CPT/HCPCS: 87086 ==